=== PATIENT | male | born 1995 | race Two or more races ===

== ENCOUNTER → 2024-10-23 | Outpatient (CLI) | payer BC, SELFPAY ==
[2024-10-23 09:50] LABS: Collection Type, Urine Clean Catch; Squamous Epithelial Cell,Urine 0 /hpf (0-5)
[2024-10-23 11:03] LABS: Alanine Aminotransferase 58 U/L (10-49); Albumin, Serum 4.9 gm/dL (3.5-5.0); Albumin/Globulin Ratio 1.6 (1.2-2.2); Alkaline Phosphatase 84 U/L (46-116); Anion Gap 6 (7-16); Aspartate Amino Transferase 37 U/L (0-34); BUN/Creatinine Ratio 10 Ratio (12-20); Bilirubin,Total 0.4 mg/dL (0.3-1.2); Blood Urea Nitrogen 8 mg/dL (9-23); Calcium 9.4 mg/dL (8.3-10.6); Calcium (Corrected) 9.4 mg/dL (8.5-10.1); Carbon Dioxide 28.6 mMol/L (20.0-31.0); Cardiac Risk Estimate 5.1 RATIO (4.0-6.7); Chloride 105 mMol/L (98-107); Cholesterol 205 mg/dL (132-200); Creatinine (Component) 0.8 mg/dL (0.6-1.3); Glucose 91 mg/dL (74-106); HDL Cholesterol 40 mg/dL (40-60); LDL Cholesterol,Calculated 141 mg/dL (0-130); Osmolality,Calculated 277 (275-295); Potassium 4.2 mMol/L (3.4-5.1); Sodium 140 mMol/L (136-145); Thyroid Stimulating Hormone 1.17 uIU/mL (0.55-4.78); Total Protein 7.9 gm/dL (5.7-8.2); Triglycerides 119 mg/dL (30-150); Uric Acid 6.2 mg/dL (3.7-9.2); eGFR > 60 See Note
[2024-10-23 11:04] LABS: Basophils # (Auto) 0.1 Thou/mm3 (0.0-0.2); Basophils % (Auto) 1 % (0-2.5); Eosinophils # (Auto) 0.2 Thou/mm3 (0.0-0.5); Eosinophils % (Auto) 3 % (0-10); Hemoglobin 14.7 g/dL (13.5-16.0); Immature Granulocytes % (Auto) 0 % (0-0); Immature Granulocytes Auto 0.03 Thou/mm3 (0.00-0.00); Lymphocytes # (Auto) 1.8 Thou/mm3 (1.0-4.8); Lymphocytes % (Auto) 23 % (10-50); Mean Corpuscular HGB Conc 33.4 g/dl (31.0-37.0); Mean Corpuscular Hemoglobin 26.8 pg (25.0-35.0); Mean Corpuscular Volume 80 fL (80-100); Monocytes # (Auto) 0.5 Thou/mm3 (0.0-0.8); Monocytes % (Auto) 7 % (0-12); Neutrophils # (Auto) 5.1 Thou/mm3 (1.8-7.7); Neutrophils % (Auto) 66 % (37-80); Nucleated Red Blood Cell % 0 /100 WBC (0); Platelet Count 301 Thou/mm3 (140-440); RDW Standard Deviation 38.1 fL (35.1-43.9); Red Blood Count 5.48 Miln/mm3 (4.50-5.90); White Blood Count 7.7 Thou/mm3 (3.8-10.6)
[2024-10-23 11:07] LABS: Bilirubin,Urine Negative (Negative); Blood,Urine Negative (Negative); Clarity,Urine Clear (Clear/Hazy); Color,Urine Lt-Yellow (Lt Yel-Yel); Glucose, Urine Negative (Negative); Ketones,Urine Negative (Negative); Leukocyte Esterase,Urine Negative (Negative); Nitrite,Urine Negative (Negative); Protein,Urine Negative (Neg - Trace); RBC,Urine 2 /hpf (0-3); Specific Gravity,Urine 1.023 (1.001-1.035); Urobilinogen,Urine Negative mg/dL (0.0-1.0); WBC,Urine 1 /hpf (0-5)
[2024-10-23 11:08] LABS: Vitamin B12 696 pg/mL (211-911); Vitamin D 25 Hydroxy Total 9.5 ng/mL (7.3-40.2)
[2024-10-23 11:11] LABS: Glucose Estimated Average 100 mg/dL (80-131); Hemoglobin A1C 5.1 % Hgb (4.8-6.0)
[2024-10-31 06:45] LABS: Valporic Acid (Depak)* <4.0 mg/L (50.0-100.0)
== END | disposition home or self-care (01) ==
PROVIDERS: PCP Internal Medicine; Referring Provider Internal Medicine; Visit Provider Internal Medicine
DX: Z00.00 Encounter for general adult medical examination without abnormal findings (principal)
CPT/HCPCS: 36415; 80053; 80061; 80164; 81001; 82306; 82533; 82607; 83036; 84443; 84550; 85025